=== PATIENT | female | born 1980 | race Caucasian/White ===

== ENCOUNTER 2016-12-12 17:53 | Observation (INO) ==
--- NOTE | 2016-12-12 18:09 | Emergency Department Note ---
Disposition Clinical Impression: Unstable angina Chest pain Qualifiers: Chest pain type: unspecified Qualified Code(s): R07.9 - Chest pain, unspecified Disposition: Admitted As Inpatient Condition: Fair Time of Disposition: 20:52 Chest Pain HPI - General Chief Complaint: ED Chest Pain Stated Complaint: chest painsss Time Seen by Provider: 12/12/16 17:54 Source: patient, EMS Mode of arrival: EMS Limitations: no limitations Vital Signs Reviewed: Yes Nursing Notes Reviewed: Yes - History of Present Illness HPI Narrative: Patient is a 35-year-old female who presents the emergency department via EMS for chest pain. Patient states that the chest pain began around 2:30 this afternoon and was just standing around when it began. Patient states that the chest pain is constant and radiates into her back and left shoulder. She states that it hurts to take in a deep breath. She rates the pain as a 7 out of 10. States that she has never had anything like this before. She states sitting up seems to help and laying flat seems to make it worse. Patient denies ever having anything like this before and denies any cardiac history. Severity scale (1-10): 7 - Related Data Home Medications Medication Instructions Recorded Confirmed ALPRAZolam [Xanax 1 MG Tablet] 1 mg PO QID 12/12/16 12/12/16 ARIPiprazole [Abilify] 5 mg PO QAM 12/12/16 12/12/16 Fluvoxamine Maleate 50 mg PO DAILY 12/12/16 12/12/16 Levothyroxine [Synthroid] 50 mcg PO 0630 12/12/16 12/12/16 Lurasidone [Latuda] 20 mg PO QPM 12/12/16 12/12/16 Pantoprazole Sodium [Protonix] 40 mg PO BID 12/12/16 12/12/16 Promethazine [Phenergan] 12.5 - 25 mg PO HS 12/12/16 12/12/16 Trazodone HCl 200 mg PO HS 12/12/16 12/12/16 cloNIDine HCl [CloNIDine HCl] 0.1 mg PO TID 12/12/16 12/12/16 Allergies Allergy/AdvReac Type Severity Reaction Status Date / Time No Known Allergies Allergy Verified 02/16/15 17:11 Constitutional: Reports: as per HPI Eyes: Denies: vision change ENT ED: Reports: as per HPI Cardiovascular: Reports: chest pain, dyspnea on exertion Respiratory: Reports: dyspnea Gastrointestinal: Denies: nausea, vomiting Genitourinary: Denies: dysuria Musculoskeletal: Reports: back pain, other (Denies any leg pain) Integumentary: Reports: as per HPI Neurological: Reports: headache (After receiving nitroglycerin) Psychiatric: Reports: as per HPI Endocrine: Reports: as per HPI Hematological/Lymphatic: Reports: as per HPI Allergic/Immunologic: Reports: as per HPI Chest Pain PMH - Past Medical History Medical history: Reports: GERD, hypertension, thyroid disease Surgical history: Reports: cholecystectomy, other Psychiatric history: Reports: anxiety, bipolar, depression, panic disorder, other FRAMEMAN history: Reports: other - Social History Smoking Status: Never smoker Alcohol use: Reports: none Drug use: Reports: marijuana, prescription drug abuse, other Physical Exam - General Limitations: no limitations General appearance: alert, in no apparent distress - Head Head exam: atraumatic, normocephalic - Neck Neck exam: Present: normal inspection, full ROM, trachea midline - Respiratory Respiratory exam: Present: normal lung sounds bilaterally. Absent: respiratory distress, wheezes - Cardiovascular Cardiovascular exam: Present: regular rate, normal rhythm, normal heart sounds, +S1, +S2 - Abdominal Exam Abdominal exam: Present: soft, Non-Tender, normal bowel sounds - Extremities Exam Extremities exam: Present: normal inspection, full ROM. Absent: tenderness - Neurological Exam Neurological exam: Present: alert, oriented X3 - Psychiatric Psychiatric exam: Present: normal affect, normal mood - Skin Skin exam: Present: warm, dry, intact Course - Consultations Consultation #1: Dr Chahal spoke with Dr Hardy the hospitalist at 2006 and he has accepted the patient to his service. The patient will be admitted to the hospital. Time: 20:07 Vital Signs Temperature 98.1 F 12/12/16 17:54 Pulse Rate 87 12/12/16 17:54 Respiratory Rate 18 12/12/16 17:54 Blood Pressure 129/79 12/12/16 17:54 O2 Sat by Pulse Oximetry 98 12/12/16 17:54 Temperature 98.1 F 12/12/16 17:54 Pulse Rate 91 12/12/16 19:01 Respiratory Rate 18 12/12/16 20:58 Blood Pressure 114/74 12/12/16 20:58 O2 Sat by Pulse Oximetry 96 12/12/16 19:01 Oxygen Delivery Oxygen Delivery Room Air Chest Pain - MDM Narrative Medical decision making narrative: The patient presented emergency department with acute onset chest pain we have done a cardiac workup on this patient. EKG showed a sinus rhythm. Troponin was negative. D-dimer was not elevated. The remainder of the labs were unremarkable. The chest x-ray showed no acute process. Patient received a nitroglycerin patch here in the emergency department. Patient had received aspirin prior to arrival this was not repeated in the emergency department. Patient was still having chest pain in the emergency department and with the patient's story we will admit the patient to the hospital for observation and ACS rule out. We have talked to the hospitalist and they have accepted the patient to their service. - Lab Data Lab results reviewed: Yes I reviewed the patient's lab results. Result diagrams: 12/12/16 18:13 12/12/16 18:13 Lab Results 12/12/16 12/12/16 12/12/16 Range/Units 18:13 18:13 18:13 WBC 9.0 (4.3-11.1) K/mcL RBC 4.18 (3.82-4.97) M/mcL Hgb 12.0 (11.5-15.4) g/dL Hct 36.9 (35.3-44.9) % MCV 88.3 (83.0-100.0) fL MCH 28.7 (28.0-33.3) pg MCHC 32.5 (31.6-35.5) g/dL RDW 13.8 (11.5-14.5) % Plt Count 258 (140-400) K/mcL MPV 10.5 (9.4-12.4) fL Immature Gran % 4.7 H (0-4) % Seg Neutrophils % 61.7 % Lymphocytes % 22.5 % Monocytes % 7.4 % Eosinophils % 2.9 % Basophils % 0.8 % Neutrophils # 5.5 (1.6-8.9) K/mcL Lymphocytes # 2.0 (0.6-4.6) K/mcL Monocytes # 0.7 (0.0-1.3) K/mcL Eosinophils # 0.3 (0.0-0.6) K/mcL Basophils # 0.1 (0.0-0.2) K/mcL D-Dimer (0-500) ng/mLFEU Sodium 138 (136-145) mEq/L Potassium 3.9 (3.5-4.5) mEq/L Chloride 103 (98-109) mEq/L Carbon Dioxide 24 (19-29) mEq/L BUN 17 (7-20) mg/dL Creatinine 0.96 (0.57-1.11) mg/dL Est GFR ( Amer) > 60 (> 60) Est GFR (Non-Af Amer) > 60 (> 60) BUN/Creatinine Ratio 18 (6-26) Glucose 84 (70-99) mg/dL Calculated Osmolality 287 (280-300) Calcium 9.3 (8.6-10.8) mg/dL Troponin I 0.00 (0-0.03) ng/mL 12/12/16 Range/Units 18:13 WBC (4.3-11.1) K/mcL RBC (3.82-4.97) M/mcL Hgb (11.5-15.4) g/dL Hct (35.3-44.9) % MCV (83.0-100.0) fL MCH (28.0-33.3) pg MCHC (31.6-35.5) g/dL RDW (11.5-14.5) % Plt Count (140-400) K/mcL MPV (9.4-12.4) fL Immature Gran % (0-4) % Seg Neutrophils % % Lymphocytes % % Monocytes % % Eosinophils % % Basophils % % Neutrophils # (1.6-8.9) K/mcL Lymphocytes # (0.6-4.6) K/mcL Monocytes # (0.0-1.3) K/mcL Eosinophils # (0.0-0.6) K/mcL Basophils # (0.0-0.2) K/mcL D-Dimer 353 (0-500) ng/mLFEU Sodium (136-145) mEq/L Potassium (3.5-4.5) mEq/L Chloride (98-109) mEq/L Carbon Dioxide (19-29) mEq/L BUN (7-20) mg/dL Creatinine (0.57-1.11) mg/dL Est GFR ( Amer) (> 60) Est GFR (Non-Af Amer) (> 60) BUN/Creatinine Ratio (6-26) Glucose (70-99) mg/dL Calculated Osmolality (280-300) Calcium (8.6-10.8) mg/dL Troponin I (0-0.03) ng/mL - Radiology Data Radiology results reviewed: Yes I reviewed the patient's radiology results. Chest X-Ray 12/12/16 18:05 IMPRESSION: No acute process. D/ / Trace Burns MD / Trace Burns MD Interpreting Provider: Trace Burns MD - EKG Data EKG attestation: Yes I reviewed and interpreted this EKG. EKG results narrative: EKG shows a sinus rhythm with a rate of 77 bpm, W[place] interval of 146, QRS ratio 93 , QTC of 403 with this was in comparison to previous EKG on 02/16/15 previous EKG showed sinus bradycardia with no ischemic changes noted on today's EKG.
[2016-12-12 18:21] LABS: Basophils # 0.1 K/mcL (0.0-0.2); Basophils % 0.8 %; Eosinophils # 0.3 K/mcL (0.0-0.6); Eosinophils % 2.9 %; Hematocrit 36.9 % (35.3-44.9); Immature Granulocytes % 4.7 % (0-4); Lymphocytes % 22.5 %; Mean Corpuscular HGB Conc 32.5 g/dL (31.6-35.5); Mean Corpuscular Hemoglobin 28.7 pg (28.0-33.3); Mean Corpuscular Volume 88.3 fL (83.0-100.0); Mean Platelet Volume 10.5 fL (9.4-12.4); Monocytes # 0.7 K/mcL (0.0-1.3); Monocytes % 7.4 %; Neutrophils # 5.5 K/mcL (1.6-8.9); Platelet Count 258 K/mcL (140-400); Red Blood Count 4.18 M/mcL (3.82-4.97); Red Cell Distribution Width 13.8 % (11.5-14.5); Segmented Neutrophils % 61.7 %
[2016-12-12 18:33] LABS: BUN/Creatinine Ratio 18 (6-26); Blood Urea Nitrogen 17 mg/dL (7-20); Calcium 9.3 mg/dL (8.6-10.8); Carbon Dioxide 24 mEq/L (19-29); Chloride 103 mEq/L (98-109); Glucose 84 mg/dL (70-99); Osmolality,Calculated 287 (280-300); Potassium 3.9 mEq/L (3.5-4.5); Sodium 138 mEq/L (136-145); eGFR For African Americans > 60 (> 60); eGFR For Non-African Americans > 60 (> 60)
--- NOTE | 2016-12-12 18:50 | Emergency Department Note ---
START Narrative - START START: I examined this patient and my medical decision-making was reviewed with the Resident Physician. I agree with the documented findings, disposition and treatment plan as described except to the extent set forth below. 35yo F here for pleuritic left sided chest pain since 230pm today. sx made worse with movement and breathing and palpation. no cad by history. no smoking. on exam, pt tender to left costochondral region on palpation. no crepitus ekg ok check screening labs
[2016-12-12] MEDS ORDERED: Nitroglycerin 1 INCH/GM PACKET TP ONE (19:55)
[2016-12-12] MEDS ORDERED: *HR* HYDROcodone/Acet 5/325 mg TABLET PO PRN (21:31)
[2016-12-12] MEDS ORDERED: Acetaminophen 325 MG TABLET PO PRN (21:31)
[2016-12-12] MEDS ORDERED: *HR* Morphine 2 MG/ML SYRINGE IVP PRN (21:31)
[2016-12-12] MEDS ORDERED: Naloxone 0.4 MG/ML INJ IVP PRN (21:31)
[2016-12-12] MEDS ORDERED: Nitroglycerin 1 INCH/GM PACKET TP PRN (21:39)
--- NOTE | 2016-12-12 22:16 | Internal Med History&Physical ---
Date of Encounter: 12/12/16 Time of Encounter: 20:00 Assessment and Plan (1) Chest pain Current visit: Yes Status: Acute Patient presents with chief complaint of chest pain that is centralized in her chest without radiation and that is increased with inspiration. Patient denies any previous cardiac events, history, or workup and reports she has never had this pain before. Patient's initial troponin on admission was 0.00. EKG today shows sinus rhythm and normal ECG. Troponins to be trended x2. Echocardiogram ordered. Patient to be placed on continuous cardiac telemetry. Will begin aspirin therapy and continue patient's Xanax for anxiety and Clonidine for HTN and anxiety/depression. Lipitor 20 mg daily ordered along with lipid panel in a.m. labs. If patient's troponins negative and she is free of chest pain, she will undergo scheduled exercise stress test in the morning and be NPO at midnight. Patient to be monitored closely for signs of increasing cardiac and/or respiratory distress. Qualifiers: Chest pain type: chest pain on breathing Qualified Code(s): R07.1 - Chest pain on breathing; R07.81 - Pleurodynia (2) GERD (gastroesophageal reflux disease) Current visit: Yes Status: Chronic Patient presents with chronic gastroesophageal reflux disease. PO Phenergan every 6 when necessary and IVP Protonix 40 mg BID ordered. Qualifiers: Esophagitis presence: esophagitis presence not specified Qualified Code(s) : K21.9 - Gastro-esophageal reflux disease without esophagitis (3) HTN (hypertension) Current visit: Yes Status: Chronic Patient presents with history of chronic HTN and reports that she takes clonidine for both anxiety and hypertension. Will continue patient's clonidine by mouth. Qualifiers: Hypertension type: essential hypertension Qualified Code(s): I10 - Essential (primary) hypertension (4) Thyroid disease Current visit: Yes Status: Chronic Patient presents with history of chronic thyroid disease. Will continue patient' s Synthroid. (5) Anxiety and depression Current visit: Yes Status: Chronic Patient presents with psychiatric history of anxiety, bipolar depression, and panic disorder. We will continue patient's trazodone, fluvoxamine, clonidine, Xanax, and Abilify. (6) DVT prophylaxis Current visit: Yes Status: Acute Patient to be placed on DVT prophylaxis due to current admission protocol and bedrest status. Heparin 5,000 units SQ Q8 ordered. Internal Medicine - H&P: HPI Chief complaint: Chest pain Admitted From: Emergency Dept Plans for Post Hospital Care: Home History of present illness: Ms. Meza is a 35 year old female with medical history of GERD, HTN, and thyroid disease who presents from the ED with chief complaint of chest pain that she describes as pressure with intermittent stabbing pain that is centralized in her chest without radiation to neck, arms, or back. She reports the pain began around 2:30 this afternoon without exertion. She states that he becomes worse with deep inspiration. Patient denies any previous cardiac history and previous occurrences of similar pain. Patient has psychiatric history that includes anxiety, bipolar depression, and panic disorder. On admission to the ED, patient's initial labs are WNL and initial troponin is 0.00. 1-View CXR today shows the lungs are without acute focal process. There is no effusion or pneumothorax. The cardiomediastinal silhouette is without acute process. The osseous structures are without acute process. Patient denies any previous cardiac testing, recent illness, nausea, vomiting, headache, changes in vision, shortness of breath, abdominal pain, unusual bleeding, lightheadedness, dizziness, presyncope, or syncope. Patient states she was given 1 dose of SL nitroglycerin by solar installer which helped somewhat, but the nitro paste administered in the ED helped better in reducing her chest pain. Patient's EKG on 02/16/15 showed sinus bradycardia with sinus arrhythmia. EKG today shows sinus rhythm and normal ECG. Information was taken from the patient, chart review, imaging and previous medical records. Ms. Meza is at high risk for cardiac event based on current symptoms and hypertensive risk factors and will be placed as observation status. Time spent with patient >40 minutes. Past Med Surg Social Fam HX - Past Medical History Source: patient, old records reviewed Medical history: GERD, hypertension, thyroid disease Psychiatric history: anxiety, bipolar, depression, panic disorder, other - Past Surgical History Surgical History: cholecystectomy, other - Social History Smoking Status: Never smoker Smokeless Tobacco Status: No Alcohol use: none Drug use: marijuana, prescription drug abuse, other Current living situation: Home Activity Level: Independent ambulation Recent Out of Country Travel Within the Last 8 Weeks: No Exposure or Possible Exposure to Illness During Travel: No - Family History Mother Race: Family Member Ethnicity: Non- Living Status: Age at : 42 Cause of : Cardiomegaly Hx Family Cardiac Disorders: Yes (enlarged heart) Father Race: Family Member Ethnicity: Non- Living Status: Still Living Hx Family Cardiac Disorders: Yes (HTN) Internal Medicine - H&P: Meds ALPRAZolam [Xanax 1 MG Tablet] 1 mg PO QID 12/12/16 [History] ARIPiprazole [Abilify] 5 mg PO QAM 12/12/16 [History] Fluvoxamine Maleate 50 mg PO DAILY 12/12/16 [History] Levothyroxine [Synthroid] 50 mcg PO 0630 12/12/16 [History] Lurasidone [Latuda] 20 mg PO QPM 12/12/16 [History] Pantoprazole Sodium [Protonix] 40 mg PO BID 12/12/16 [History] Promethazine [Phenergan] 12.5 - 25 mg PO HS 12/12/16 [History] Trazodone HCl 200 mg PO HS 12/12/16 [History] cloNIDine HCl [CloNIDine HCl] 0.1 mg PO TID 12/12/16 [History] 3 Allergy/AdvReac Type Severity Reaction Status Date / Time No Known Allergies Allergy Verified 02/16/15 17:11 All Systems PM: A 10-system review of systems was performed and is negative for pertinent findings except as documented above in the HPI. - Constitutional Constitutional: no chills, no fever(s), no night sweats - EENT Eyes: no change in vision, no discharge, no pain, no photophobia Ears: no ear discharge, no ear pain, no tinnitus Nose, mouth and throat: no dysphagia, no nasal discharge, no neck pain, no sore throat - Breasts Breasts: as per HPI - Cardiovascular Cardiovascular ROS IM: as per HPI, chest pain, no diaphoresis, no dyspnea, no lightheadedness, no palpitations, no syncope - Respiratory Respiratory: no cough, no dyspnea, no wheezing, no excessive phlegm production - Gastrointestinal Gastrointestinal: no abdominal pain, no diarrhea, no hematemesis, no hematochezia, no melena, no nausea, no vomiting - Genitourinary Genitourinary: no change in urinary stream, no dysuria, no flank pain, no hematuria Menstruation: as per HPI - Musculoskeletal Musculoskeletal ROS IM: no numbness, no tingling - Integumentary Integumentary IM: no rash, no unusual bruising - Neurological Neurological ROS: no confusion, no convulsions, no focal weakness, no numbness, no tingling, no tremor(s) - Psychiatric Psychiatric: as per HPI - Endocrine Endocrine IM: as per HPI - Hematologic/Lymphatic Hematologic/Lymphatic: no easy bruising - Allergic/Immunologic Allergic/Immunologic: as per HPI - Constitutional Vitals: Temp Pulse Resp BP Pulse Ox 98.2 F 89 15 115/75 95 12/12/16 21:30 12/12/16 21:30 12/12/16 21:30 12/12/16 21:30 12/12/16 21:30 General appearance: Present: cooperative, mild distress, A&O X 3, pleasant, obese, answers questions appropriately - Head Head exam: Present: atraumatic, normocephalic - Eye Eye exam: Present: PERRL, conjuntiva pink, sclera anicteric Pupils: Present: PERRL - ENT ENT exam: Present: normal exam, normal external ear exam - Neck Neck exam general surgery: Present: normal inspection, supple, trachea midline. Absent: lymphadenopathy - Respiratory Respiratory exam: Present: CTAB. Absent: accessory muscle use, rales, rhonchi, wheezes - Cardiovascular Cardiovascular exam: Present: RRR, +S1, +S2. Absent: diastolic murmur, gallop, rubs, systolic murmur - GI/Abdominal GI/Abdominal exam: Present: normal bowel sounds, soft, no peritoneal signs. Absent: distended, tenderness - Rectal Rectal exam: Present: deferred - Additional comments: exam deferred. - Extremities Exam Extremities exam: Present: warm, radial pulses palpable and symmetrical. Absent : calf tenderness, cyanotic, pedal edema - Back Exam Back exam: Present: normal inspection - Neurological Exam Neurological exam: Present: CN II-XII intact, oriented X3, no focal deficits. Absent: pronater drift, facial droop, speech deficit - Psychiatric Psychiatric exam: Present: normal affect, normal mood - Skin Skin exam: Present: dry, intact Internal Med - H&P Results - Labs CBC & Chem 7: 12/12/16 18:13 12/12/16 18:13 - EKG Data EKG shows normal: sinus rhythm Rate: normal - EKG Data Interpretation IM: normal EKG EKG comments: 12/12/16 22:26 EKG dated 02/16/15 shows sinus bradycardia with sinus arrhythmia. EKG dated 12/12/16 shows sinus rhythm and normal ECG. - Diagnostic Studies Chest x-ray Additional comments: Impressions Chest X-Ray 12/12/16 18:05 IMPRESSION: No acute process. D/ / Trace Burns MD / Trace Burns MD Interpreting Provider: Trace Burns MD
--- NOTE | 2016-12-12 22:19 | Event Note ---
Date of Encounter: 12/12/16 Time of Encounter: 22:18 Patient seen and examined. Presents with chest pain. Without acute coronary syndrome. EKG shows no ischemic changes. Serial cardiac markers if normal she will have a stress test in a.m.
[2016-12-12] MEDS ORDERED: cloNIDine HCl 0.1 MG TABLET PO ONE (22:30)
[2016-12-12] MEDS ORDERED: ALPRAZolam 1 MG TABLET PO ONE (22:31)
[2016-12-12] MEDS ORDERED: Lurasidone 20 MG TABLET PO ONE (22:45)
[2016-12-12] MEDS: *HR* Heparin 5,000 UNIT/ML VIAL SQ SCH (22:51)
[2016-12-12] MEDS: Aspirin Enteric Coated 81 MG Tablet PO SCH (22:54)
[2016-12-12] MEDS ORDERED: traZODone 50 MG TABLET PO ONE (23:00)
[2016-12-13 00:50] LABS: Basophils # 0.1 K/mcL (0.0-0.2); Basophils % 0.8 %; Eosinophils # 0.3 K/mcL (0.0-0.6); Eosinophils % 3.4 %; Hematocrit 36.2 % (35.3-44.9); Hemoglobin 11.6 g/dL (11.5-15.4); Immature Granulocytes % 5.3 % (0-4); Immature Platelets 4.2 % (1.1-6.1); Lymphocytes # 1.9 K/mcL (0.6-4.6); Mean Corpuscular Hemoglobin 28.2 pg (28.0-33.3); Mean Corpuscular Volume 87.9 fL (83.0-100.0); Mean Platelet Volume 10.2 fL (9.4-12.4); Monocytes # 0.5 K/mcL (0.0-1.3); Monocytes % 6.7 %; Neutrophils # 4.2 K/mcL (1.6-8.9); Platelet Count 251 K/mcL (140-400); Red Blood Count 4.12 M/mcL (3.82-4.97); Red Cell Distribution Width 13.7 % (11.5-14.5); Segmented Neutrophils % 57.8 %
[2016-12-13 00:54] LABS: Prothrombin Time 10.7 Seconds (9.4-12.1)
[2016-12-13 00:56] LABS: Activated Partial Thrombo Time 29.6 Seconds (26.0-36.0)
[2016-12-13 01:05] LABS: Alanine Aminotransferase 15 Units/L (0-55); Albumin 3.1 g/dL (3.5-5.0); Albumin/Globulin Ratio 0.8 (1.1-2.2); Alkaline Phosphatase 52 Units/L (38-126); Aspartate Amino Transferase 13 Units/L (5-34); BUN/Creatinine Ratio 20 (6-26); Bilirubin,Total 0.2 mg/dL (0.2-1.2); Blood Urea Nitrogen 19 mg/dL (7-20); Calcium 9.3 mg/dL (8.6-10.8); Carbon Dioxide 25 mEq/L (19-29); Chloride 105 mEq/L (98-109); Chol/HDL Ratio 5.3 (0-4.9); Cholesterol 212 mg/dL (< 200); Globulin 3.8 g/dL (2.4-3.5); Glucose 130 mg/dL (70-99); HDL Cholesterol 40 mg/dL (40-59); LDL Cholesterol,Calculated 107 mg/dL (0-99); Magnesium 1.9 mg/dL (1.6-2.6); Osmolality,Calculated 292 (280-300); Potassium 3.8 mEq/L (3.5-4.5); Sodium 139 mEq/L (136-145); Total Protein 6.9 g/dL (6.0-8.3); Triglycerides 325 mg/dL (< 150); eGFR For African Americans > 60 (> 60); eGFR For Non-African Americans > 60 (> 60)
[2016-12-13 01:10] LABS: Hemoglobin A1C 5.2 %
[2016-12-13 01:15] LABS: Platelet Estimate Normal (Normal)
[2016-12-13] MEDS: *HR* Heparin 5,000 UNIT/ML VIAL SQ SCH ×3 (05:22→20:28)
[2016-12-13] MEDS: Pantoprazole 40 MG VIAL IVP SCH ×2 (07:50→16:42)
[2016-12-13] MEDS: Aspirin Enteric Coated 81 MG Tablet PO SCH (09:52)
[2016-12-13] MEDS: ALPRAZolam 1 MG TABLET PO SCH ×4 (09:52→20:26)
[2016-12-13] MEDS: ARIPiprazole 5 MG TABLET PO SCH (09:52)
[2016-12-13] MEDS: cloNIDine HCl 0.1 MG TABLET PO SCH ×3 (09:53→20:26)
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
--- NOTE | 2016-12-13 15:57 | Electrocardiograph Report ---
[address] [address] Test Date: 2016-12-12 Pat Name: Karen Meza Department: 104 Room: [facility] Gender: F Wood Flour Miller: ALBA : 1980 Requested By: Logan Up Order Number: [id number] Reading MD: Gavi Hall Measurements Intervals [place] Rate: 77 P: 50 [place]: 146 QRS: 29 QRSD: 93 T: 10 QT: 371 QTc: 403 Interpretive Statements SINUS RHYTHM Electronically Signed On 12-13-2016 15:55:13 EDT by Gavi Hall
[2016-12-13] MEDS ORDERED: Lurasidone 20 MG TABLET PO SCH (18:00)
[2016-12-13] MEDS ORDERED: traZODone 50 MG TABLET PO SCH (21:00)
[2016-12-14] MEDS: *HR* Heparin 5,000 UNIT/ML VIAL SQ SCH ×2 (05:59→12:29)
[2016-12-14 08:09] LABS: Thyroid Stimulating Hormone 5.346 mcIU/mL (0.350-4.840)
[2016-12-14] MEDS: cloNIDine HCl 0.1 MG TABLET PO SCH (09:06)
[2016-12-14] MEDS: ALPRAZolam 1 MG TABLET PO SCH ×2 (09:06→12:27)
[2016-12-14] MEDS: Aspirin Enteric Coated 81 MG Tablet PO SCH (09:06)
[2016-12-14] MEDS: ARIPiprazole 5 MG TABLET PO SCH (09:06)
[2016-12-14] MEDS: Pantoprazole 40 MG VIAL IVP SCH (09:07)
--- NOTE | 2016-12-14 10:21 | Nuclear Medicine Stress Report ---
Exercise Nuclear Stress 2 day Name: Karen Meza Date of Study: 12/13/2016 Date: 1980 Ht: 64.0 in Medical Record#: [id number] Age: 35 Wt: 230.0 lb Gender: Female Order #: [id number] Location: [facility] Room: [facility] Supervising Provider: Felicitas Camacho CNP Reading Physician: Gordy Elias MD, [facility] Ordering Physician: Silvia Hernández CNP Primary Care Physician: Kasey Rowley CNP Stress Technologist: Nahun Blanco [employer] Installation Sales Technician: Yves Kwok Indications: Chest Pain Impression: The exercise capacity was fair. Exercise ECG was negative for ischemia. In recovery, intermittent ST elevations were noted twice in the inferior leads, likely representing coronary vasospasm. Gated LVEF > 70%. There is a small area of possible mild reversible ischemia limited to the basal inferior wall. All other segmental perfusion normal in rest and stress. Recommend cardiology consultation. Abnormal results were discussed with the ordering provider. Stress Test Summary: Stress Test Type: Treadmill Baseline Information: Initial Heart Rate: 98 Blood Pressure: 118/72 Stress Information: Stress Time: 5 min 29 sec Test Terminated Due to (primary): Fatigue Maximum Blood Pressure: 180/80 Maximum Heart Rate: 156 Percent Maximum Heart Rate Achieved: 85 Double Product: 21991 METS Reached: 7 Symptoms: Shortness of breath, Leg discomfort Nuclear Summary: SPECT myocardial perfusion imaging using Tc99m Sestamibi given intravenously was performed at rest and following cardiac stress testing. The resting images were obtained following initial dose of 32 mCi. Following stress an additional dose of 31 mCi was given at peak exercise or 30 seconds post regadenoson infusion. Findings: Stress Note * Resting ECG demonstrated normal sinus rhythm. * No baseline arrhythmias were noted. * The exercise capacity was fair. * Patient had no chest pain during stress. * Rare PVCs were noted during exercise. * Exercise ECG was negative for ischemia. In recovery, intermittent ST elevations were noted twice in the inferior leads, likely representing coronary vasospasm. Hemodynamic responses * Normal hemodynamic responses to exercise. Study Quality * Study quality is average. Gated EF > 70% * Gated LVEF > 70%. Left Ventricle * The left ventricle is not dilated. * There is a small area of possible mild reversible ischemia limited to the basal inferior wall. * All other segmental perfusion normal in rest and stress. TID * No evidence of transient ischemic dilatation. Updated by Gordy Elias MD, FACC on 12/14/2016 10:13:10 AM electronically signed on 12/14/2016 10:16:24 AM with status of Final
--- NOTE | 2016-12-14 10:51 | Cardiology Consult Note ---
Date of Encounter: 12/14/16 Time of Encounter: 10:48 Assessment and Plan (1) Abnormal stress test Current Visit: Yes Status: Acute 2 day stress test completed today--exercise ECG was negative for ischemia. In recovery she had intermittent ST elevation noted twice in inferior leads, likely representing coronary vasospasm. Gated EF >70%. Small are of possible mild reversible ischemia limited to basal inferior wall. Chest pain is atypical--pleuritic in nature, worse with inspiration. Troponins negative. Normal baseline EKG. Given stress test as above, will start pt on ASA, Statin and CCB (for vasospasm) . Recommend outpt follow-up in 2-3 weeks. At that time, will recommend outpt coronary CTA to evaluate for any anomalous coronary artery. Low suspicion for obstructive CAD. Risk factors prior tobacco abuse, HTN, obesity. Does report mother had cardiac issues and at 42, but unclear details. Echo EF preserved, mild LVDD. Anticipate sign off once seen and evaluated by Dr. Elias. Will coordinate outpt follow-up. (2) Chest pain Current Visit: Yes Status: Acute As above. Qualifiers: Chest pain type: chest pain on breathing Qualified Code(s): R07.1 - Chest pain on breathing; R07.81 - Pleurodynia Discussion w patient/family: The assessment and plan as outlined above was discussed with the patient and/or family members who expressed understanding and agreement. All questions were answered. Thank you for involving us in the care of your patient. Please call with any questions. I will discuss all the above with Dr. Elias and make changes as necessary. History of Present Illness Consult date: 12/14/16 Requesting physician: Silvia Hernández Consult reason: abnormal stress Chief complaint: chest pain History of present illness: Ms. Meza is a 35 year old female with PMH of GERD, HTN, thyroid disease, anxiety /depression, bipolar, panic disorder who presented to ED via EMS with chief complaint of chest pain described as pressure with intermittent stabbing pain that is centralized in her chest without radiation. It began around 2:30 Friday afternoon when she was standing. It was worse with deep inspiration. She reports days prior she did heavy lifting and was exerting herself. Patient denies any previous cardiac history and previous occurrences of similar pain. She reports EMS gave her nitro which dulled the pain. Troponins were negative. She underwent 2 day stress test completed today--exercise ECG was negative for ischemia. In recovery she had intermittent ST elevation noted twice in inferior leads, likely representing coronary vasospasm. Gated EF >70%. Small are of possible mild reversible ischemia limited to basal inferior wall. Cardiology consulted for further recommendations. Echo EF 60%, mild diastolic dysfunction. Reports prior hx of tobacco abuse, since quit. Reports mother at 42 from multiple issues, but did have cardiac issues as well--unclear of details. Pt is currently chest pain free. Reports she will have 1/10 chest pain on deep inspiration. Past Med Surg Social Fam HX - Past Medical History Medical history: GERD, hypertension, thyroid disease Psychiatric history: anxiety, bipolar, depression, panic disorder, other - Past Surgical History Surgical History: cholecystectomy, other - Social History Smoking Status: Never smoker Smokeless Tobacco Status: No Alcohol use: none Drug use: marijuana, prescription drug abuse, other - Family History Mother Race: Family Member Ethnicity: Non- Living Status: Age at : 42 Cause of : Cardiomegaly Hx Family Cardiac Disorders: Yes (enlarged heart) Father Race: Family Member Ethnicity: Non- Living Status: Still Living Hx Family Cardiac Disorders: Yes (HTN) Medications and Allergies ALPRAZolam [Xanax 1 MG Tablet] 1 mg PO QID 12/12/16 [History] ARIPiprazole [Abilify] 5 mg PO QAM 12/12/16 [History] Fluvoxamine Maleate 50 mg PO DAILY 12/12/16 [History] Levothyroxine [Synthroid] 50 mcg PO 0630 12/12/16 [History] Lurasidone [Latuda] 20 mg PO QPM 12/12/16 [History] Pantoprazole Sodium [Protonix] 40 mg PO BID 12/12/16 [History] Promethazine [Phenergan] 12.5 - 25 mg PO HS 12/12/16 [History] Trazodone HCl 200 mg PO HS 12/12/16 [History] cloNIDine HCl [CloNIDine HCl] 0.1 mg PO TID 12/12/16 [History] 3 Allergy/AdvReac Type Severity Reaction Status Date / Time No Known Allergies Allergy Verified 02/16/15 17:11 All Systems Review: A 10-system review of systems was performed and is negative for pertinent findings except as documented above in the HPI. - Cardiovascular Cardiovascular: as per HPI, chest pain at rest Physical Examination Vital Signs, Last 4 Hours Temp Pulse Resp BP Pulse Ox 12/14/16 08:04 95 12/14/16 07:07 98.4 F 82 15 112/68 95 Vital Signs Temp Pulse Resp BP Pulse Ox 12/14/16 08:04 95 12/14/16 07:07 98.4 F 82 15 112/68 95 12/14/16 03:00 97.6 F 74 15 98/64 95 12/13/16 23:10 97.9 F 77 16 104/64 95 12/13/16 19:26 98.4 F 84 16 86/45 96 12/13/16 15:28 98.1 F 82 16 94/57 96 12/13/16 11:07 97.9 F 80 17 94/58 94 Intake and Output 12/13/16 12/14/16 12/14/16 23:59 07:59 15:59 Intake Total 240 / 240 Balance 240 / 240 Intake: Oral 240 / 240 Other: Meal Dinner Percent of Meal Consumed 75% Weight 106.05 kg Patient Weight 12/14/16 23:59 Weight 106.05 kg General: Conversant, No Apparent Distress HEENT: Atraumatic, Normocephaly, Mucus Membranes Moist Neck: No JVD, Normal carotid pulses Cardiac: Reg Rate and Rhythm, Normal S1 and S2, No Murmur Lungs: Normal Breath Sounds, No Wheeze, Rales, Rhonchi Neuro: Alert and responsive, No focal deficits noted Abdomen: Soft Skin: No rashes noted on visualized skin Musculoskeletal: No Chest Wall Tenderness Extremities: No Clubbing, No Cyanosis, No Edema, Normal Pulses Results 12/13/16 00:37 12/13/16 00:37 Lab Results 12/14/16 07:16 TSH 5.346 H Active Medications Acetaminophen (Tylenol) 650 mg PO Q6HR PRN PRN Reason: Mild Pain (1-3) Stop: 06/13/17 21:32 Hydrocodone Bitart/Acetaminophen ([place] 5-325 Mg) 1 tab PO Q4HR PRN PRN Reason: Moderate Pain (4-6) Stop: 06/13/17 21:32 Alprazolam (Xanax) 1 mg PO QID ARINA PRN Reason: Protocol Stop: 06/14/17 09:01 Last Admin: 12/14/16 09:06 Dose: 1 mg Aripiprazole (Abilify) 5 mg PO QAM [facility] Stop: 06/14/17 09:01 Last Admin: 12/14/16 09:06 Dose: 5 mg Aspirin (Aspirin Ec) 81 mg PO DAILY [facility] Stop: 06/13/17 22:46 Last Admin: 12/14/16 09:06 Dose: 81 mg Atorvastatin Calcium (Lipitor) 20 mg PO HS [facility] Stop: 06/14/17 21:01 Last Admin: 12/13/16 20:26 Dose: 20 mg Clonidine HCl (Clonidine Hcl) 0.1 mg PO TID [facility] Stop: 06/14/17 09:01 Last Admin: 12/14/16 09:06 Dose: 0.1 mg Fluvoxamine Maleate (Luvox) 50 mg PO DAILY [facility] Stop: 06/14/17 09:01 Last Admin: 12/14/16 09:06 Dose: 50 mg Heparin Sodium (Porcine) (Heparin) 5,000 unit SQ Q8HCO [facility] Stop: 06/13/17 22:01 Last Admin: 12/14/16 05:59 Dose: Not Given Levothyroxine Sodium (Synthroid) 50 mcg PO 0630 [facility] Stop: 06/14/17 06:31 Last Admin: 12/14/16 05:59 Dose: Not Given Lurasidone HCl (Latuda) 20 mg PO QPM [facility] Stop: 06/14/17 18:01 Last Admin: 12/13/16 20:26 Dose: 20 mg Morphine Sulfate (Morphine Sulfate) 2 mg IVP Q4HR PRN PRN Reason: Severe Pain (7-10) Stop: 06/13/17 21:32 Naloxone HCl (Narcan) 0.4 mg IVP Q2MIN PRN PRN Reason: Opioid Reversal Stop: 06/13/17 21:32 Nitroglycerin (Nitroglycerin) 0.5 inch TP Q6HNTG PRN PRN Reason: Chest Pain Stop: 06/14/17 06:01 Pantoprazole Sodium (Protonix) 40 mg IVP BIDAC [facility] Stop: 06/14/17 07:31 Last Admin: 12/14/16 09:07 Dose: 40 mg Promethazine HCl (Phenergan) 12.5 mg PO Q6HR PRN PRN Reason: Nausea And Vomiting Stop: 06/13/17 21:32 Trazodone HCl (Trazodone) 200 mg PO HS [facility] Stop: 06/14/17 21:01 Last Admin: 12/13/16 20:26 Dose: 200 mg - Imaging and Cardiology Stress Test: report reviewed Echo: report reviewed - EKG Interpretation EKG results cardiology: personally reviewed (SR, normal ECG), other (12 hr tele AVG HR 80, SR, no significant pauses or arrhythmias) Consult Discharge Plan - Plan Referrals: Kasey Rowley, [employer] [facility] [Primary Care Provider] -
[2016-12-14 11:22] VITALS: BP 116/69
[2016-12-14] MEDS ORDERED: amLODIPine 5 MG TABLET PO SCH (12:00)
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
== END 2016-12-14 15:03 | disposition home or self-care (01) ==
LOC: EMEROO 17:53 → 3BNU 17:53
PROVIDERS: ADMIT Nurse Practitioner Family; ATTEND Nurse Practitioner Family